=== PATIENT | male | born 1990 ===

== ENCOUNTER 2016-08-06 00:10 | Emergency (ER) | payer OTHER ==
[2016-08-06 00:20] VITALS: BP 149/89; PULSE 87; RESP 18; TEMP 98.7; O2SAT 99
--- NOTE | 2016-08-06 01:15 | ED PDOC ---
HPI: Skin/Bite Injury Time Seen by Provider: 08/06/16 00:27 Chief Complaint (Nursing): Abnormal Skin Integrity Chief Complaint (Provider): Laceration History Per: Patient Additional Complaint(s): Pt presents to the ED with a laceration to the right thumb sustained while cooking. FROM. distal sensation intact Past Medical History Reviewed: Historical Data, Nursing Documentation, Vital Signs Vital Signs: Last Vital Signs Temp 98.7 F 08/06/16 00:18 Pulse 87 08/06/16 00:18 Resp 18 08/06/16 00:18 BP 149/89 08/06/16 00:18 Pulse Ox 99 08/06/16 01:14 - Medical History PMH: No Chronic Diseases - Surgical History Surgical History: No Surg Hx - Family History Family History: States: Unknown Family Hx - Living Arrangements Living Arrangements: With Family - Social History Alcohol: Social - Home Medications Home Medications: Ambulatory Orders Medication Instructions Recorded Cephalexin [Keflex] 500 mg PO QID #28 capsule 11/30/15 - Allergies Allergies/Adverse Reactions: Allergies Allergy/AdvReac Type Severity Reaction Status Date / Time No Known Allergies Allergy Verified 11/30/15 01:52 Review of Systems ROS Statement: Except As Marked, All Systems Reviewed And Found Negative Skin: Positive for: Other (laceration) Physical Exam - Reviewed Nursing Documentation Reviewed: Yes Vital Signs Reviewed: Yes - Physical Exam Appears: Positive for: Well, Non-toxic, No Acute Distress Head Exam: Positive for: ATRAUMATIC, NORMAL INSPECTION, NORMOCEPHALIC Skin: Positive for: Normal Color, Warm, DRY Eye Exam: Positive for: EOMI, Normal appearance, PERRL ENT: Positive for: Normal ENT Inspection Neck: Positive for: Normal, Painless ROM Cardiovascular/Chest: Positive for: Regular Rate, Rhythm Respiratory: Positive for: CNT, Normal Breath Sounds Gastrointestinal/Abdominal: Positive for: Normal Exam, Bowel Sounds, Soft Back: Positive for: Normal Inspection Extremity: Positive for: Other (laceration 3 cm to fingertip pulp of right thumb ) - ECG O2 Sat by Pulse Oximetry: 99 Medical Decision Making Medical Decision Making: Laceration repaired by radio script writer, see notes. Wound care discussed Disposition - Clinical Impression Clinical Impression: Laceration - Patient ED Disposition Is Patient to be Admitted: No - Disposition Disposition: Routine/Home Disposition Time: 02:00 Condition: STABLE Additional Instructions: Suture removal in 10 days Instructions: Laceration (ED) Laceration - Laceration Repair laceration Wound Length (In cm): 36 in Description Of Wound: Linear Wound Cleansed With: Sterile Saline Anesthesia: Lidocaine 1% Wound Examination: Irrigated With Saline Wound Closure: Suture (5-0) Wound Complexity: Simple (3) Wound Complexity: Simple
[2016-08-06] MEDS ORDERED: Lidocaine 1% Inj (20ml) ONE (01:25)
== END 2016-08-06 02:07 | disposition home or self-care (01) ==
LOC: H.ER 00:10
DX: S61.011A Laceration without foreign body of right thumb without damage to nail, initial encounter (principal); W26.0XXA Contact with knife, initial encounter; Y92.000 Kitchen of unspecified non-institutional (private) residence as the place of occurrence of the external cause

== ENCOUNTER 2016-08-14 11:33 | Emergency (ER) | payer OTHER ==
[2016-08-14 12:15] VITALS: BP 148/64; PULSE 60; RESP 16; TEMP 97.5; O2SAT 97
--- NOTE | 2016-08-14 12:50 | ED PDOC ---
HPI: Wound Care - HPI Time Seen by Provider: 08/14/16 12:29 Chief Complaint (Nursing): Wound Check Chief Complaint (Provider): Suture Removal History Per: Patient Exam Limitations: no limitations Additional Complaint(s): Young Camargo is a 26 y/o male presenting to the ER on 08/14/2016 for a suture removal on his right thumb. Three sutures remain while the rest came undone while the patient was using his iPhone since he was instructed to leave his finger straight. Patient was not given antibiotics. Past Medical History Reviewed: Historical Data, Nursing Documentation, Vital Signs Vital Signs: Last Vital Signs Temp 97.5 F L 08/14/16 12:14 Pulse 60 08/14/16 12:14 Resp 16 08/14/16 12:14 BP 148/64 08/14/16 12:14 Pulse Ox 97 08/14/16 12:14 - Medical History PMH: No Chronic Diseases - Surgical History Surgical History: No Surg Hx - Family History Family History: States: Unknown Family Hx - Social History Current smoker - smoking cessation education provided: No Alcohol: None Drugs: Denies - Home Medications Home Medications: Ambulatory Orders Medication Instructions Recorded Cephalexin [Keflex] 500 mg PO QID #28 capsule 11/30/15 Cephalexin [Keflex] 500 mg PO BID #20 capsule 08/14/16 - Allergies Allergies/Adverse Reactions: Allergies Allergy/AdvReac Type Severity Reaction Status Date / Time No Known Allergies Allergy Verified 11/30/15 01:52 Review of Systems ROS Statement: Except As Marked, All Systems Reviewed And Found Negative Constitutional: Negative for: Fever Neurological: Negative for: Weakness, Numbness Physical Exam - Reviewed Nursing Documentation Reviewed: Yes Vital Signs Reviewed: Yes - Physical Exam Appears: Positive for: Non-toxic, No Acute Distress Head Exam: Positive for: ATRAUMATIC, NORMOCEPHALIC Skin: Positive for: Normal Color. Negative for: Rash Eye Exam: Positive for: Normal appearance Neck: Positive for: Normal Extremity: Positive for: Normal ROM, Other (0.5 cm laceration while healing to right medial wrist. 3 cm laceration on right thumb, 2 sutures on one end with one on the other end surrounded by localized erythema ). Negative for: Deformity, Swelling Neurologic/Psych: Positive for: Alert, Oriented. Negative for: Motor/Sensory Deficits - ECG O2 Sat by Pulse Oximetry: 97 Medical Decision Making Medical Decision Makin:29 Initial Impression- Suture Removal Pt had one suture removed from the right wrist while having three removed from the right thumb. Pt will be discharged routinely with rx for Keflex. Condition is stable for discharge. Documented by Aldo Dukes, acting as a scribe for Ofelia Quinn PA-C All medical record entries made by the Scribe were at my direction and personally dictated by me. I have reviewed the chart and agree that the record accurately reflects my personal performance of the history, physical exam, medical decision making, and the department course for this patient. I have also personally directed, reviewed, and agree with the discharge instructions and disposition. Disposition - Clinical Impression Clinical Impression: Visit for suture removal, Wound dehiscence - Disposition Disposition: Routine/Home Disposition Time: 12:55 Condition: STABLE Prescriptions: Cephalexin [Keflex] 500 mg PO BID #20 capsule Instructions: Stitches Removal (ED)
== END 2016-08-14 13:11 | disposition home or self-care (01) ==
LOC: H.ER 11:33
DX: Z48.02 Encounter for removal of sutures (principal)